=== PATIENT | male | born 1995 | race Caucasian/White ===

== ENCOUNTER 2019-03-31 06:53 | Emergency (ER) | payer OTHER ==
[~2019-03-31] VITALS: Ht 177.8 cm; Wt 74.8 kg
[~2019-03-31 06:53] MED LIST: KEFLEX500 MG PO; MOTRIN400 MG PO; MOTRIN600 MG PO; ZOFRAN ODT4 MG SL
[2019-03-31] MEDS ORDERED: ZITHROMAX250 MG PO (08:42)
[2019-03-31] MEDS ORDERED: IMODIUM A-D2 M2 PO (08:42)
== END 2019-03-31 08:42 | disposition home or self-care (01) ==
LOC: ED 06:53
DX: J40 Bronchitis, not specified as acute or chronic (principal); K52.9 Noninfective gastroenteritis and colitis, unspecified

== ENCOUNTER 2019-09-15 20:32 | Emergency (ER) | payer OTHER ==
[~2019-09-15] VITALS: Ht 177.8 cm; Wt 80.3 kg
[~2019-09-15 20:32] MED LIST changes: +IMODIUM A-D2 M2 PO; +ZITHROMAX250 MG PO
== END 2019-09-15 22:15 | disposition home or self-care (01) ==
LOC: ED 20:32
DX: H16.133 Photokeratitis, bilateral (principal); Z79.899 Other long term (current) drug therapy

== ENCOUNTER 2020-06-30 19:47 | Emergency (ER) | payer OTHER ==
[~2020-06-30] VITALS: Ht 177.8 cm; Wt 77.1 kg
== END 2020-06-30 22:00 | disposition left against medical advice (07) ==
LOC: ED 19:47
DX: R06.02 Shortness of breath (principal); R11.0 Nausea; R68.83 Chills (without fever); R61 Generalized hyperhidrosis; R52 Pain, unspecified; Z53.21 Procedure and treatment not carried out due to patient leaving prior to being seen by health care provider